=== PATIENT | female | born 2000 | race Caucasian/White ===

== ENCOUNTER 2023-07-06 04:48 | Emergency (ER) | payer MEDICAID ==
[~2023-07-06] VITALS: Ht 154.9 cm; Wt 63.5 kg
[2023-07-06 04:55] VITALS: BP_SYST 122; PULSE 92; RESP 20; TEMP 97.6; O2SAT 99
[2023-07-06] MEDS ORDERED: AMOX500C2 PO (05:15)
[2023-07-06] MEDS: ACETAMINOPHEN 325 MG TABLET PO ONE (05:17)
[2023-07-06 05:37] VITALS: BP_SYST 122; PULSE 99; RESP 20; TEMP 97.9; O2SAT 99
== END 2023-07-06 05:37 | disposition home or self-care (01) ==
LOC: SED 04:48
DX: H66.93 Otitis media, unspecified, bilateral (principal); Z79.899 Other long term (current) drug therapy
CPT/HCPCS: 99283